=== PATIENT | male | born 1985 | race Caucasian/White ===

== ENCOUNTER 2020-09-04 09:31 | Emergency (ER) | payer BC, SELFPAY ==
[2020-09-04] VITALS (12 sets, daily range): BP systolic 145–164; BP diastolic 72–107; PULSE 96–123; RESP 11–27; TEMP 36.1; O2SAT 98–100
--- NOTE | ~2020-09-04 | XR_ITS ---
EXAMINATION: XR chest 1V portable 09/04/2020 10:00 INDICATION: Shortness of breath. Weakness. Covid Positive. PROCEDURE: AP portable chest COMPARISON: No prior studies for comparison. FINDINGS: The lungs are clear. The cardiomediastinal silhouette is within normal limits. There are no pleural effusions. There is no pneumothorax suspected. IMPRESSION: 1: NO ACUTE CARDIOPULMONARY DISEASE. Reviewed, dictated and finalized at location A. KMAKER
--- NOTE | 2020-09-04 09:40 | ECG_ITS ---
Measurements Intervals [place] Rate: 112 P: 48 W[place]: 116 QRS: -12 QRSD: 113 T: 1 QT: 327 QTc: 448 Interpretive Statements SINUS TACHYCARDIA WITH SHORT [place] INTERVAL INTRAVENTRICULAR CONDUCTION DELAY DELAYED PRECORDIAL R/S TRANSITION BASELINE ARTIFACT- II, III, AVR, AVL, AVF ABNORMAL ECG Electronically Signed On 09-04-2020 9:44:38 [employer] CONTINUOUS CHURN by Bonilla Davila D.O.
[2020-09-04 10:02] LABS: Basophils Percent Auto 0.7 % (0.2-1.2); Eosinophils Absolute Auto 0.1 K/mm3 (0-0.3); Eosinophils Percent Auto 0.9 % (0-4.4); Hematocrit 50.2 % (42.0-52.0); Hemoglobin 17.7 g/dL (14.0-18.0); Immature Granulocyte Absolute 0.01 K/mm3 (0.00-0.031); Immature Granulocyte Percent A 0.2 % (0-0.5); Lymphocytes Absolute Auto 1.91 K/mm3 (0.9-3.2); Lymphocytes Percent Auto 32.5 % (18.3-44.2); Mean Corpuscular HGB Conc 35.3 g/dl (32-36); Mean Corpuscular Hemoglobin 30.3 pg (26-34); Mean Platelet Volume 9.7 fl (7.4-10.4); Monocytes Absolute Auto 0.6 K/mm3 (0.1-0.6); Monocytes Percent Auto 9.7 % (2.6-8.5); Neutrophils Absolute Auto 3.3 K/mm3 (1.3-6.7); Platelet Count Result 170 k/mm3 (150-375); Red Blood Count 5.84 M/mm3 (4.6-6.20); Red Cell Distribution Width 11.7 % (11.5-14.5); White Blood Count 5.9 K/mm3 (4.5-10.0)
[2020-09-04 10:15] LABS: Alanine Aminotransferase 107 U/L (4-50); Albumin Level 4.5 g/dL (3.5-5.1); Alkaline Phosphatase 76 U/L (38-126); Anion Gap 13 mmol/L (8-16); Aspartate Amino Transferase 82 U/L (17-59); Bilirubin,Total 0.9 mg/dL (0.2-1.3); Blood Urea Nitrogen 16 mg/dL (9-20); Calcium 9.3 mg/dL (8.4-10.2); Carbon Dioxide 22 mmol/L (22-30); Chloride 101 mmol/L (98-107); Estimated CRCL calculation 108 ml/min; Estimated Glomerular Filt Rate > 60; Glucose 128 mg/dL (75-110); Potassium 3.5 mmol/L (3.4-5.0); Sodium 136 mmol/L (137-145)
[2020-09-04 10:48] LABS: Add Urine Microscopic? YES; Appearance Urine Clear (Clear); Bacteria Urine Trace /hpf; Bilirubin Urine Negative (Negative); Blood Urine Negative (Negative); Color Urine Yellow (Yellow); Glucose Urine UA Negative (Negative); Ketones Urine Trace mg/dL (Negative); Leukocyte Esterase Ur Negative LEU/UL (Negative); Mucus Urine Rare /lpf; Nitrate Urine Negative (Negative); Protein Urine Negative (Negative); RBC Urine 0-2 /hpf (0-2); Specific Grav Ur 1.012 (1.001-1.035); Urobilinogen Urine Negative mg/dL (<2.0); WBC Urine 0-3 /hpf
--- NOTE | 2020-09-04 10:51 | ED.GENADULT ---
HPI - General Adult General Chief complaint: Shortness of Breath/Dyspnea Stated complaint: COVID +, SOB Time Seen by Provider: 09/04/20 09:41 Source: patient Mode of arrival: ambulatory Limitations: no limitations History of Present Illness HPI narrative: Patient was Covid positive presents with chief complaint of fatigue and shortness of breath with exertion over the past week. Patient states that he tested positive for Covid on 08-30-2019. Patient states that his symptoms started 2 days prior. Patient has not had fever, chills, nausea, vomiting, diarrhea, abdominal pain, chest pain. Patient states that he has been very anxious recently as his who is has also obtain Covid from him and she lost the last . Patient states he has been able to eat and drink appropriately. Patient denies having any fevers. Patient denies having any chronic medical conditions including asthma COPD, hypertension or diabetes. Related Data Home Medications Medication Instructions Recorded Confirmed dextroamphetamine-amphetamine PO 09/04/20 [Adderall XR] montelukast mg 09/04/20 Allergies Allergy/AdvReac Type Severity Reaction Status Date / Time No Known Allergies Allergy Verified 09/04/20 09:40 Review of Systems Review of Systems: Narrative: CONSTITUTIONAL: Reports fatigue denies fever, chills, or sweats. EYES: Denies visual changes, redness, or discharge. ENT: Denies rhinorrhea, congestion, sore throat, or otalgia. CARDIOVASCULAR: Denies chest pain, palpitations, or edema. RESPIRATORY: Reports shortness of breath with exertion denies cough GASTROINTESTINAL: Denies abdominal pain, nausea, vomiting, or diarrhea. GENITOURINARY: Denies dysuria or hematuria. SKIN: Denies rash or itching. MUSCULOSKELETAL: Denies back pain, joint pain, or myalgia. NEUROLOGIC: Denies headache, numbness, dizziness, or weakness. PSYCHIATRIC: Denies anxiety or depression. Exam Narrative: Exam Narrative: GENERAL: Well-appearing, well-nourished, and in no acute distress. HEAD: Normocephalic, atraumatic. EYES: PERRLA and EOMI. NECK: Supple. No adenopathy or masses. CHEST: Clear to auscultation. No respiratory distress. No wheezes rales or rhonchi. No tachypnea. Patient not gasping for breath. Oxygenation on room air is 100%. Patient speaking in full sentences without difficulty. HEART: Regular rate and rhythm. No murmur heard. Normal peripheral pulses. EXTREMITIES: Normal range of motion. No edema. SKIN: Warm, dry, no rash. NEURO: No focal deficits. Alert and oriented x3. PSYCH: Patient slightly anxious. Course Vital Signs Vital signs: Vital Signs Temperature 97.0 F L 09/04/20 09:37 Pulse Rate 111 H 09/04/20 09:37 Respiratory Rate 20 09/04/20 09:37 Blood Pressure 162/98 H 09/04/20 09:37 Pulse Oximetry 100 09/04/20 09:37 Temperature 97.0 F L 09/04/20 09:37 Pulse Rate 100 09/04/20 10:46 Respiratory Rate 20 09/04/20 10:46 Blood Pressure 164/102 H 09/04/20 10:46 Pulse Oximetry 98 09/04/20 10:46 Medical Decision Making MDM Narrative Medical decision making narrative: Patient's oxygenation has remained 98 to 100%. Patient does have slightly elevated AST and ALT levels but no tenderness in the right upper quadrant. He has not had any nausea or vomiting. Patient should follow-up with his primary care for further investigation into slightly elevated liver function studies. Patient has been able to tolerate p.o. fluids. He is not hypotensive. Patient is not hypoxic even with ambulation. Patient states that he has been having a lot of anxiety due to getting his sick with Covid and worrying about her having complications with her . Patient D-dimer is negative. Patient does not have pain with breathing or inspiration. There is no calf pain or other signs of DVT or PE. Patient is instructed to go home and rest and return to emergency department if he has hypoxia or any other emergent
== END 2020-09-04 11:29 | disposition home or self-care (01) ==
PROVIDERS: Physician Assistant; Emergency Provider Emergency Medicine; PCP Physician Assistant
DX: U07.1 COVID-19 (principal); R00.0 Tachycardia, unspecified
CPT/HCPCS: 36415; 71045; 80053; 81001; 85025; 85380; 93005; 99283

== ENCOUNTER → 2022-09-12 08:21 | Outpatient (CLI) | payer BC, SELFPAY ==
--- NOTE | ~2022-09-12 | US_ITS ---
EXAMINATION: US right upper quadrant DATE: 09/12/2022 08:48 INDICATION: Elevated liver enzymes TECHNIQUE: Multiple grayscale and Doppler ultrasound images of the abdomen were obtained. COMPARISON: None available FINDINGS: The head and body of the pancreas are normal. The pancreatic tail is obscured by bowel gas. The liver is normal with normal echogenicity and echotexture. No surface nodularity. Normal hepatope ronda flow in the main portal vein. The gallbladder is normal with no abnormal wall thickening, pericho lecystic fluid or stones. The normal common bile duct measures 4 mm. There was no sonographic Rob sign. IMPRESSION: 1. Diffuse hepatic steatosis. Reviewed, dictated and finalized at location B. [employer] SWE[employer] OPERATOR
== END ==
PROVIDERS: PCP Physician Assistant; Visit Provider Physician Assistant
DX: R74.01 Elevation of levels of liver transaminase levels (principal); K76.0 Fatty (change of) liver, not elsewhere classified
CPT/HCPCS: 76705

== ENCOUNTER → 2022-10-03 11:16 | Outpatient (CLI) | payer BC, SELFPAY ==
--- NOTE | ~2022-10-03 | XR_ITS ---
Lumbosacral Spine: AP and lateral views Clinical History: Pain Findings: The normal lordotic curve is maintained. The vertebral bodies and posterior elements are i ntact. The intervertebral disc spaces are preserved. The sacroiliac joints are normally outlined. Impression: No significant abnormality. Reviewed, dictated and finalized at [facility]. [employer] OFFICER Impression: No significant abnormality.
== END ==
PROVIDERS: PCP Physician Assistant; Visit Provider Physician Assistant
DX: M51.37 Other intervertebral disc degeneration, lumbosacral region (principal)
CPT/HCPCS: 72100